=== PATIENT | female | born 1990 | race Caucasian/White ===

== ENCOUNTER 2017-07-29 | Emergency (ER) | payer BC ==
[2017-07-29 01:56] VITALS: BP 114/77
== END 2017-07-29 01:56 | disposition home or self-care (01) ==
LOC: ED
DX: F53 Mental and behavioral disorders associated with the puerperium, not elsewhere classified (principal); F41.9 Anxiety disorder, unspecified; Z88.1 Allergy status to other antibiotic agents
CPT/HCPCS: J1885; J2060; J2405

== ENCOUNTER 2017-08-11 04:27 | Emergency (ER) | payer SELFPAY ==
[~2017-08-11] VITALS: Ht 165.1 cm; Wt 49.9 kg
[2017-08-11 04:30] VITALS: BP 160/93
== END 2017-08-11 05:05 | disposition left against medical advice (07) ==
LOC: ED 04:27
DX: Z53.21 Procedure and treatment not carried out due to patient leaving prior to being seen by health care provider (principal)

== ENCOUNTER 2017-10-13 06:48 | Emergency (ER) | payer SELFPAY ==
[2017-10-13 11:29] VITALS: BP 124/71
== END 2017-10-13 11:15 | disposition home or self-care (01) ==
LOC: ED 06:48
DX: G43.909 Migraine, unspecified, not intractable, without status migrainosus (principal); F41.9 Anxiety disorder, unspecified; Z88.1 Allergy status to other antibiotic agents
CPT/HCPCS: J0780; J1200; J1885; J7030